=== PATIENT | female | born 2000 | race Caucasian/White ===

== ENCOUNTER 2020-03-13 18:08 | Emergency (ER) | payer MEDICAID ==
[~2020-03-13] VITALS: Ht 160 cm; Wt 88.6 kg
[~2020-03-13 18:08] MED LIST: IRON1TAB60 PO
--- NOTE | 2020-03-13 18:56 | NUR ---
REPORT GIVEN TO RAMAN HAWKINS.
[2020-03-13] MEDS ORDERED: ACETAMINOPHEN 500 MG TABLET PO ONE (19:00)
[2020-03-13 19:29] LABS: BASOPHILS # (AUTO) 0.02 x10^3/uL (0-0.1); BASOPHILS % (AUTO) 0 % (0-1); EOSINOPHILS % (AUTO) 0 % (1-7); LYMPHOCYTES # (AUTO) 1.05 x10^3/uL (1-3.4); LYMPHOCYTES % (AUTO) 16 % (22-44); MD NO; MEAN CORPUSCULAR HGB CONC 31.9 g/dL (32.4-35.8); MEAN PLATELET VOLUME 7.9 fL (7.4-10.4); MONOCYTES # (AUTO) 0.55 x10^3/uL (0.2-0.8); MONOCYTES % (AUTO) 9 % (2-9); NEUTROPHILS # (AUTO) 4.78 x10^3/uL (1.8-6.8); NEUTROPHILS % (AUTO) 75 % (42-75); PLATELET COUNT 242 x10^3/uL (130-400); RED BLOOD COUNT 4.63 x10^6/uL (3.82-5.3); RED CELL DISTRIBUTION WIDTH 16.6 % (9.6-15.2)
[2020-03-13] MEDS ORDERED: SODIUM CHLORIDE 0.9% 1,000ML IVBOLUS ONE (19:30)
[2020-03-13] MEDS ORDERED: SODIUM CHLORIDE FLUSH 10ML SYR IVF ONE (19:30)
[2020-03-13] MEDS ORDERED: DEXAMETHASONE 4 MG/ML, 1ML IVPush ONE (19:30)
[2020-03-13 19:31] LABS: ALBUMIN 3.7 g/dL (3.4-5.0); ANION GAP 6 mmol/L (5-15); CALCIUM 8.4 mg/dL (8.5-10.1); CHLORIDE 106 mmol/L (98-107); CREATININE 0.76 mg/dL (0.55-1.02)
[2020-03-13] MEDS ORDERED: ACETAMINOPHEN 500 MG TABLET ONE (19:40)
[2020-03-13] MEDS ORDERED: DEXAMETHASONE 4 MG/ML, 5ML ONE (19:40)
[2020-03-13 20:13] VITALS: BP 120/70
[2020-03-13] MEDS ORDERED: HYDROcodone/APAP 5/325 TABLET PO ONE (20:30)
== END 2020-03-13 20:42 | disposition home or self-care (01) ==
LOC: ED 20:18
DX: J02.0 Streptococcal pharyngitis (principal); R00.0 Tachycardia, unspecified; R59.0 Localized enlarged lymph nodes; J35.1 Hypertrophy of tonsils; R42 Dizziness and giddiness
CPT/HCPCS: 36415; 80048; 82040; 85025; 87040; 87081; 87880; 96360; 99283; J7030